=== PATIENT | male | born 1955 | race Caucasian/White ===

== ENCOUNTER → 2017-10-24 | Outpatient (CLI) | payer BC ==
[~2017-10-24] MED LIST: APIX5TAB PO; ASPI325T17 PO; LATA2.5D3 EACHEYE; LISI-170 PO; LORA-702 PO; LOSA50TA6 PO; MELO15TA24 PO; METO25TA35 PO; OMEP-110 PO; REGADENOSON 0.4 MG/5 ML SYRINGE ONE; TADA20TA PO; TEST60GE2 TP; TRAM50TA2 PO; claritin
== END | disposition home or self-care (01) ==
LOC: CVU 10:49 → EDSTATUS 11:00
PROVIDERS: ATTEND Internal Medicine Cardiovascular Disease
DX: I10 Essential (primary) hypertension (principal); I48.0 Paroxysmal atrial fibrillation
CPT/HCPCS: 78452; 93017; A9502; C8929; J2785

== ENCOUNTER 2019-01-14 07:02 | Inpatient (IN) | payer BC, OTHER ==
[~2019-01-14] VITALS: Ht 180.3 cm; Wt 132.9 kg
[~2019-01-14 07:02] MED LIST changes: +LOSA50TA14 PO; -LOSA50TA6 PO; -REGADENOSON 0.4 MG/5 ML SYRINGE ONE
--- NOTE | 2019-01-14 07:52 | NUR ---
PT AMBULATORY TO ROOM 17 W/ C/O LLQ ABD PAIN STARTED YESTERDAY NOC. PT STATES HE WAS RECENTLY ON ANTX FINISHED COURSE 2 DAYS AGO AND HAS HAD LOOSE STOOL NOW IMPROVED. PT STATES ONLY ABD HX WAS APPENDECTOMY. PT ALSO C/O NAUSEA NO EMESIS. PT RESTING ON GURNEY. NADN. MONITORS APPLIED. VSS. FAMILY AT BEDSIDE. WARM BLANKET PROVIDED.
[2019-01-14] MEDS ORDERED: SODIUM CHLORIDE FLUSH 10ML SYR IVF ONE (08:00)
[2019-01-14] MEDS ORDERED: ONDANSETRON 2MG/ML, 2ML IVPush ONE (08:00)
[2019-01-14] MEDS ORDERED: MORPHINE SULFATE 4 MG/ML, 1ML ONE ×3 (08:16→13:41)
[2019-01-14] MEDS ORDERED: ONDANSETRON 2MG/ML, 2ML ONE ×2 (08:16→13:04)
[2019-01-14] MEDS: MORPHINE SULFATE 4 MG/ML, 1ML IVPush PRN ×2 (08:19→09:35)
[2019-01-14 08:21] LABS: BASOPHILS # (AUTO) 0.02 x10^3/uL (0-0.1); BASOPHILS % (AUTO) 0 % (0-1); EOSINOPHILS # (AUTO) 0.23 x10^3/uL (0-0.4); EOSINOPHILS % (AUTO) 2 % (1-7); LYMPHOCYTES % (AUTO) 11 % (22-44); MD NO; MEAN CORPUSCULAR HEMOGLOBIN 31.2 pg (27.5-34.5); MEAN CORPUSCULAR HGB CONC 33.7 g/dL (33.2-36.2); MEAN CORPUSCULAR VOLUME 92.6 fL (81-97); MEAN PLATELET VOLUME 9.1 fL (7.4-10.4); MONOCYTES # (AUTO) 1.31 x10^3/uL (0.2-0.8); MONOCYTES % (AUTO) 9 % (2-9); NEUTROPHILS # (AUTO) 11.67 x10^3/uL (1.8-6.8); NEUTROPHILS % (AUTO) 78 % (42-75); PLATELET COUNT 175 x10^3/uL (130-400); RED BLOOD COUNT 5.42 x10^6/uL (4.38-5.82); RED CELL DISTRIBUTION WIDTH 14.6 % (9.4-14.8)
--- NOTE | 2019-01-14 08:25 | NUR ---
RN JUN IS HELPING THE PRIMARY CARE RN. PT. HAS C/O PAIN. PT. WAS MEDICATED FOR PAIN ORDERED. PT. VERBALIZED RELIEF FROM PAIN MEDICATION. PT. REMAINS MONITORED. SIDERAILS UP X 2 WITH THE CALL LIGHT IN PLACE. HOB IS ELEVATED ABOVE 30 DEGREES.
[2019-01-14 08:26] LABS: MICROSCOPIC NOT IND
[2019-01-14 08:31] LABS: CULTURE INDICATED? NO
[2019-01-14 08:33] LABS: ALANINE AMINOTRANSFERASE 35 U/L (12-78); ALBUMIN 3.4 g/dL (3.4-5.0); ANION GAP 7 mmol/L (5-15); CALCIUM 8.8 mg/dL (8.5-10.1); CHLORIDE 111 mmol/L (98-107); CREATININE 1.17 mg/dL (0.7-1.3)
[2019-01-14 08:35] LABS: ALKALINE PHOSPHATASE 78 U/L (45-117); BILIRUBIN,TOTAL 0.7 mg/dL (0.2-1.0); TOTAL PROTEIN 7.4 g/dL (6.4-8.2)
[2019-01-14] MEDS ORDERED: OMNIPAQUE 350 MG/ML, 150 ML BOTTLE ONE (08:59)
--- NOTE | 2019-01-14 09:35 | NUR ---
[facility]IC[facility] PER JAN.
[2019-01-14] MEDS ORDERED: METRONIDAZOLE PMX 500MG/100ML 100 ML IV ONE (10:30)
[2019-01-14] MEDS ORDERED: CEFTRIAXONE PMX 1GM/50ML 50 ML IV ONE (10:30)
--- NOTE | 2019-01-14 10:38 | NUR ---
PT RESTING ON GURNEY. NADN. CARSON.
--- NOTE | 2019-01-14 11:23 | NUR ---
PT RESTING ON GURNEY. NADN. CARSON.
[2019-01-14] MEDS ORDERED: LABETALOL 5MG/ML, 20ML IVPush PRN (11:30)
[2019-01-14] MEDS ORDERED: ACETAMINOPHEN 325 MG TABLET PO PRN (11:30)
[2019-01-14] MEDS ORDERED: hydrALAzine 20 MG/ML, 1ML IVPush PRN (11:30)
--- NOTE | 2019-01-14 12:09 | NUR ---
Supa cole in ED - 01/14/19 at 1210 by BONNIE PT DESATURATED WHILE SLEEPING. PT PLACED ON 2L NC AT THIS TIME.
[2019-01-14] MEDS ORDERED: METRONIDAZOLE PMX 500MG/100ML 100 ML ONE (12:28)
--- NOTE | 2019-01-14 12:56 | NUR ---
PT RESTING ON GURNEY. NADN. CARSON.
[2019-01-14] MEDS: METRONIDAZOLE PMX 500MG/100ML 100 ML IV SCH ×2 (12:58→20:04)
[2019-01-14] MEDS: CEFTRIAXONE PMX 2GM/50ML 50 ML IV SCH (12:59)
[2019-01-14] MEDS ORDERED: CEFTRIAXONE PMX 1GM/50ML 50 ML ONE (13:01)
[2019-01-14] MEDS: ONDANSETRON 2MG/ML, 2ML IVPush PRN ×2 (13:06→20:04)
--- NOTE | 2019-01-14 13:30 | NUR ---
PT RESTING ON GURNEY. MALDONADO
[2019-01-14] MEDS: morphine SULFATE 10 MG/ML, 1ML IVPush PRN ×4 (13:50→23:56)
[2019-01-14] MEDS: SODIUM CHLORIDE 0.9% 1,000 ML IV SCH ×2 (13:51→23:55)
--- NOTE | 2019-01-14 14:12 | NUR ---
PT RESTING ON GURNEY. NADN. CARSON.
--- NOTE | 2019-01-14 14:53 | NUR ---
REPORT GIVEN TO MARVA, RECEIVING RN. ALL QUESTIONS ANSWERED. AWAITING PT TRANSPORT.
[2019-01-14 17:24] VITALS: BP 106/64
[2019-01-14 20:27] VITALS: BP 109/58
[2019-01-15 01:58] VITALS: BP 116/76
[2019-01-15] MEDS: ONDANSETRON 2MG/ML, 2ML IVPush PRN ×4 (04:19→22:28)
[2019-01-15] MEDS: METRONIDAZOLE PMX 500MG/100ML 100 ML IV SCH ×3 (04:19→19:49)
[2019-01-15] MEDS: morphine SULFATE 10 MG/ML, 1ML IVPush PRN ×2 (04:19→07:52)
[2019-01-15 05:10] LABS: BASOPHILS # (AUTO) 0.03 x10^3/uL (0-0.1); BASOPHILS % (AUTO) 0 % (0-1); EOSINOPHILS # (AUTO) 0.13 x10^3/uL (0-0.4); EOSINOPHILS % (AUTO) 1 % (1-7); LYMPHOCYTES # (AUTO) 1.79 x10^3/uL (1-3.4); LYMPHOCYTES % (AUTO) 14 % (22-44); MD NO; MEAN CORPUSCULAR HEMOGLOBIN 31.7 pg (27.5-34.5); MEAN CORPUSCULAR VOLUME 93.3 fL (81-97); MEAN PLATELET VOLUME 9.1 fL (7.4-10.4); MONOCYTES # (AUTO) 1.44 x10^3/uL (0.2-0.8); MONOCYTES % (AUTO) 11 % (2-9); NEUTROPHILS # (AUTO) 9.81 x10^3/uL (1.8-6.8); NEUTROPHILS % (AUTO) 74 % (42-75); PLATELET COUNT 143 x10^3/uL (130-400); RED BLOOD COUNT 5.13 x10^6/uL (4.38-5.82); RED CELL DISTRIBUTION WIDTH 14.8 % (9.4-14.8)
[2019-01-15 05:18] LABS: ANION GAP 7 mmol/L (5-15); CALCIUM 8.6 mg/dL (8.5-10.1); CHLORIDE 110 mmol/L (98-107)
[2019-01-15 05:20] LABS: CREATININE 1.14 mg/dL (0.7-1.3)
[2019-01-15 06:44] VITALS: BP 109/72
[2019-01-15] MEDS ORDERED: SENNOSIDES 8.6 MG TABLET PO PRN (09:00)
[2019-01-15] MEDS: CEFTRIAXONE PMX 2GM/50ML 50 ML IV SCH (10:57)
[2019-01-15] MEDS: OXYcodone IR 5MG TABLET PO PRN ×3 (10:57→22:28)
[2019-01-15] MEDS ORDERED: morphine SULFATE 10 MG/ML, 1ML IVPush PRN (11:00)
[2019-01-15 16:25] VITALS: BP 103/60
[2019-01-15] MEDS: SODIUM CHLORIDE 0.9% 1,000 ML IV SCH (16:30)
[2019-01-15 19:04] VITALS: BP 106/70
[2019-01-15] MEDS ORDERED: CALCIUM CARBONATE 500 MG TAB.CHEW PO PRN (19:30)
[2019-01-16 04:11] VITALS: BP 110/71
[2019-01-16] MEDS: METRONIDAZOLE PMX 500MG/100ML 100 ML IV SCH (04:24)
[2019-01-16] MEDS: ONDANSETRON 2MG/ML, 2ML IVPush PRN ×4 (04:25→23:35)
[2019-01-16] MEDS: OXYcodone IR 5MG TABLET PO PRN ×4 (04:25→23:35)
[2019-01-16 07:25] VITALS: BP 101/56
[2019-01-16] MEDS: SODIUM CHLORIDE 0.9% 1,000 ML IV SCH (07:43)
[2019-01-16 09:37] LABS: BASOPHILS # (AUTO) 0.03 x10^3/uL (0-0.1); BASOPHILS % (AUTO) 0 % (0-1); EOSINOPHILS # (AUTO) 0.15 x10^3/uL (0-0.4); EOSINOPHILS % (AUTO) 1 % (1-7); LYMPHOCYTES % (AUTO) 12 % (22-44); MD NO; MEAN CORPUSCULAR HEMOGLOBIN 31.5 pg (27.5-34.5); MEAN CORPUSCULAR HGB CONC 34.2 g/dL (33.2-36.2); MEAN CORPUSCULAR VOLUME 92.1 fL (81-97); MEAN PLATELET VOLUME 8.6 fL (7.4-10.4); MONOCYTES # (AUTO) 0.91 x10^3/uL (0.2-0.8); MONOCYTES % (AUTO) 9 % (2-9); NEUTROPHILS # (AUTO) 8.36 x10^3/uL (1.8-6.8); NEUTROPHILS % (AUTO) 78 % (42-75); PLATELET COUNT 146 x10^3/uL (130-400); RED BLOOD COUNT 4.71 x10^6/uL (4.38-5.82); RED CELL DISTRIBUTION WIDTH 14.3 % (9.4-14.8)
[2019-01-16 09:49] LABS: ALANINE AMINOTRANSFERASE 21 U/L (12-78); ALBUMIN 2.8 g/dL (3.4-5.0); ANION GAP 5 mmol/L (5-15); CALCIUM 8.2 mg/dL (8.5-10.1); CHLORIDE 111 mmol/L (98-107); CREATININE 1.02 mg/dL (0.7-1.3)
[2019-01-16 09:51] LABS: ALKALINE PHOSPHATASE 53 U/L (45-117); BILIRUBIN,TOTAL 0.6 mg/dL (0.2-1.0); TOTAL PROTEIN 6.6 g/dL (6.4-8.2)
[2019-01-16] MEDS: SODIUM CHLORIDE 0.45% 1,000 ML IV SCH ×2 (10:55→19:36)
[2019-01-16] MEDS: MEROPENEM 1 GM in SODIUM CHLORIDE 0.9% 100 ML IV SCH ×2 (11:34→19:28)
[2019-01-16 14:00] VITALS: BP 133/82
[2019-01-16 14:57] VITALS: BP 105/73
[2019-01-16] MEDS ORDERED: OMNIPAQUE 350 MG/ML, 100ML BOTTLE ONE (15:29)
[2019-01-16 19:24] VITALS: BP 99/64
[2019-01-17 00:54] VITALS: BP 109/72
[2019-01-17] MEDS: MEROPENEM 1 GM in SODIUM CHLORIDE 0.9% 100 ML IV SCH ×3 (03:26→19:37)
[2019-01-17] MEDS: SODIUM CHLORIDE 0.45% 1,000 ML IV SCH ×3 (04:35→21:32)
[2019-01-17] MEDS: OXYcodone IR 5MG TABLET PO PRN (06:12)
[2019-01-17] MEDS: ONDANSETRON 2MG/ML, 2ML IVPush PRN (06:12)
[2019-01-17 07:29] LABS: BASOPHILS # (AUTO) 0.01 x10^3/uL (0-0.1); BASOPHILS % (AUTO) 0 % (0-1); EOSINOPHILS # (AUTO) 0.22 x10^3/uL (0-0.4); EOSINOPHILS % (AUTO) 2 % (1-7); LYMPHOCYTES # (AUTO) 1.19 x10^3/uL (1-3.4); LYMPHOCYTES % (AUTO) 10 % (22-44); MD NO; MEAN CORPUSCULAR HEMOGLOBIN 31.4 pg (27.5-34.5); MEAN CORPUSCULAR HGB CONC 33.9 g/dL (33.2-36.2); MEAN CORPUSCULAR VOLUME 92.7 fL (81-97); MEAN PLATELET VOLUME 8.8 fL (7.4-10.4); MONOCYTES # (AUTO) 0.98 x10^3/uL (0.2-0.8); MONOCYTES % (AUTO) 8 % (2-9); NEUTROPHILS # (AUTO) 9.41 x10^3/uL (1.8-6.8); NEUTROPHILS % (AUTO) 80 % (42-75); PLATELET COUNT 160 x10^3/uL (130-400); RED BLOOD COUNT 4.78 x10^6/uL (4.38-5.82); RED CELL DISTRIBUTION WIDTH 14.1 % (9.4-14.8)
[2019-01-17] MEDS ORDERED: KETOROLAC 30 MG/1 ML IM SCH (07:30)
[2019-01-17 07:33] LABS: ALANINE AMINOTRANSFERASE 19 U/L (12-78); ALBUMIN 2.9 g/dL (3.4-5.0); ANION GAP 6 mmol/L (5-15); CALCIUM 8.1 mg/dL (8.5-10.1); CHLORIDE 109 mmol/L (98-107); CREATININE 1.07 mg/dL (0.7-1.3)
[2019-01-17 07:35] LABS: ALKALINE PHOSPHATASE 56 U/L (45-117); BILIRUBIN,TOTAL 0.6 mg/dL (0.2-1.0); TOTAL PROTEIN 6.6 g/dL (6.4-8.2)
[2019-01-17 08:00] VITALS: BP 114/74
[2019-01-17] MEDS: KETOROLAC 30 MG/1 ML IVPush SCH ×3 (08:22→20:26)
[2019-01-17] MEDS ORDERED: KETOROLAC 30 MG/1 ML IVPush SCH (13:30)
[2019-01-17 14:00] VITALS: BP 117/73
[2019-01-17 18:59] VITALS: BP 97/66
[2019-01-18 00:09] VITALS: BP 112/68
[2019-01-18] MEDS: KETOROLAC 30 MG/1 ML IVPush SCH ×2 (03:03→09:53)
[2019-01-18] MEDS: MEROPENEM 1 GM in SODIUM CHLORIDE 0.9% 100 ML IV SCH ×2 (04:06→11:55)
[2019-01-18 05:59] LABS: BASOPHILS # (AUTO) 0.04 x10^3/uL (0-0.1); BASOPHILS % (AUTO) 1 % (0-1); EOSINOPHILS % (AUTO) 3 % (1-7); LYMPHOCYTES # (AUTO) 1.46 x10^3/uL (1-3.4); LYMPHOCYTES % (AUTO) 19 % (22-44); MD NO; MEAN CORPUSCULAR HGB CONC 34.9 g/dL (33.2-36.2); MEAN CORPUSCULAR VOLUME 91.7 fL (81-97); MEAN PLATELET VOLUME 8.4 fL (7.4-10.4); MONOCYTES # (AUTO) 0.68 x10^3/uL (0.2-0.8); MONOCYTES % (AUTO) 9 % (2-9); NEUTROPHILS % (AUTO) 69 % (42-75); PLATELET COUNT 147 x10^3/uL (130-400); RED BLOOD COUNT 4.54 x10^6/uL (4.38-5.82); RED CELL DISTRIBUTION WIDTH 13.8 % (9.4-14.8)
[2019-01-18 06:05] LABS: CHLORIDE 113 mmol/L (98-107)
[2019-01-18 06:13] LABS: ALANINE AMINOTRANSFERASE 18 U/L (12-78); ALBUMIN 2.6 g/dL (3.4-5.0); ALKALINE PHOSPHATASE 52 U/L (45-117); ANION GAP 5 mmol/L (5-15); BILIRUBIN,TOTAL 0.4 mg/dL (0.2-1.0); CALCIUM 7.9 mg/dL (8.5-10.1); CREATININE 1.05 mg/dL (0.7-1.3); TOTAL PROTEIN 6.1 g/dL (6.4-8.2)
[2019-01-18] MEDS: SODIUM CHLORIDE 0.45% 1,000 ML IV SCH (07:00)
[2019-01-18 08:00] VITALS: BP 118/72
[2019-01-18 13:21] VITALS: BP 119/75
[2019-01-18] MEDS ORDERED: METR500T PO (13:43)
[2019-01-18] MEDS ORDERED: CIPR500T87 PO (13:43)
== END 2019-01-18 15:07 | disposition home or self-care (01) | DRG 392 ==
LOC: ED 07:56 → EDIP 10:25 → 3NE 14:46
PROVIDERS: ADMIT Internal Medicine; ATTEND Internal Medicine
DX: K57.32 Diverticulitis of large intestine without perforation or abscess without bleeding (principal); H40.9 Unspecified glaucoma; I10 Essential (primary) hypertension; K21.9 Gastro-esophageal reflux disease without esophagitis; K76.0 Fatty (change of) liver, not elsewhere classified; K80.20 Calculus of gallbladder without cholecystitis without obstruction; Z90.49 Acquired absence of other specified parts of digestive tract
CPT/HCPCS: 36415; 74177; 76700; 80048; 80053; 81003; 83605; 83690; 83735; 84100; 85025; 87040; 96374; 96375; 96376; G0378; J0696; J1885; J2185; J2405; Q9967; J2270; J7030

== ENCOUNTER 2019-05-23 10:12 | Emergency (ER) | payer OTHER ==
[~2019-05-23] VITALS: Ht 177.8 cm; Wt 131.8 kg
[~2019-05-23 10:12] MED LIST changes: +CIPR500T87 PO; +METR500T PO
[2019-05-23 10:14] VITALS: BP 161/75
--- NOTE | 2019-05-23 10:20 | NUR ---
NICOLÁS DAVIS AT BEDSIDE TO ASSESS PT, PT IN NAD, NO NEEDS AT THIS TIME
[2019-05-23] MEDS ORDERED: LIDOCAINE-MPF 1%, 5ML ONE (10:27)
[2019-05-23] MEDS ORDERED: LIDOCAINE 1%, 10ML INFIL ONE (10:30)
[2019-05-23] MEDS ORDERED: NEOSPORIN OINT. PKT 1 PACKET ONE (11:01)
== END 2019-05-23 11:24 | disposition home or self-care (01) ==
LOC: ED 10:23
DX: S60.132A Contusion of left middle finger with damage to nail, initial encounter (principal); I10 Essential (primary) hypertension; Z87.891 Personal history of nicotine dependence; W23.0XXA Caught, crushed, jammed, or pinched between moving objects, initial encounter; Y93.89 Activity, other specified; Y92.009 Unspecified place in unspecified non-institutional (private) residence as the place of occurrence of the external cause; Y99.8 Other external cause status
CPT/HCPCS: 11730; 99283

== ENCOUNTER 2020-04-01 19:29 | Emergency (ER) | payer BC, OTHER ==
[~2020-04-01] VITALS: Ht 180.3 cm; Wt 126.7 kg
--- NOTE | 2020-04-01 19:46 | NUR ---
PT BACK TO ROOM WITH A SMOOTH AND STEADY GAIT, NAD, RESP WNL, P/W/D, AT BS, CALL LIGHT ON LAP, WCTM. VAHE WIGGINS AT FOR EVAL AND POC.
[2020-04-01] MEDS ORDERED: ONDANSETRON 2MG/ML, 2ML IVPush ONE (20:00)
[2020-04-01] MEDS ORDERED: PLEASE ENTER ALLERGIES MC SCH (20:00)
[2020-04-01] MEDS ORDERED: ONDANSETRON 2MG/ML, 2ML ONE (20:03)
[2020-04-01] MEDS ORDERED: MORPHINE SULFATE 4 MG/ML, 1ML ONE ×3 (20:04→21:46)
[2020-04-01] MEDS: MORPHINE SULFATE 4 MG/ML, 1ML IVPush PRN ×2 (20:14→20:36)
[2020-04-01 20:33] LABS: BASOPHILS # (AUTO) 0.03 x10^3/uL (0-0.1); BASOPHILS % (AUTO) 0 % (0-1); EOSINOPHILS # (AUTO) 0.11 x10^3/uL (0-0.4); EOSINOPHILS % (AUTO) 1 % (1-7); LYMPHOCYTES # (AUTO) 0.85 x10^3/uL (1-3.4); LYMPHOCYTES % (AUTO) 8 % (22-44); MD NO; MEAN CORPUSCULAR HEMOGLOBIN 30.5 pg (27.5-34.5); MEAN CORPUSCULAR HGB CONC 33.4 g/dL (33.2-36.2); MEAN PLATELET VOLUME 8.9 fL (7.4-10.4); MONOCYTES # (AUTO) 0.69 x10^3/uL (0.2-0.8); MONOCYTES % (AUTO) 7 % (2-9); NEUTROPHILS % (AUTO) 84 % (42-75); PLATELET COUNT 168 x10^3/uL (130-400); RED BLOOD COUNT 5.35 x10^6/uL (4.38-5.82); RED CELL DISTRIBUTION WIDTH 14.6 % (9.4-14.8)
[2020-04-01 20:35] LABS: MICROSCOPIC AUTO
[2020-04-01 20:43] LABS: ALANINE AMINOTRANSFERASE 17 U/L (12-78); ALBUMIN 3.7 g/dL (3.4-5.0); ANION GAP 5 mmol/L (5-15); CHLORIDE 111 mmol/L (98-107); CREATININE 1.84 mg/dL (0.7-1.3)
[2020-04-01 20:45] LABS: ALKALINE PHOSPHATASE 69 U/L (45-117); BILIRUBIN,TOTAL 0.7 mg/dL (0.2-1.0); TOTAL PROTEIN 7.3 g/dL (6.4-8.2)
--- NOTE | 2020-04-01 21:22 | NUR ---
PT RESTING ON GURNEY WITH MONITORING IN PLACE, REPORTS DECREASED PAIN TO 3/10. PT UPDATED ON POC, DENIES FURTHER NEEDS AT THIS TIME, CALL LIGHT WITHIN REACH, ALL SAFETY MEASURES IN PLACE. FAMILY AT BS FOR SUPPORT.
[2020-04-01] MEDS ORDERED: MORPHINE SULFATE 4 MG/ML, 1ML IVPush ONE (22:30)
[2020-04-01 22:31] VITALS: BP 103/61
== END 2020-04-01 22:35 | disposition home or self-care (01) ==
LOC: ED 20:31
DX: N20.1 Calculus of ureter (principal); R31.9 Hematuria, unspecified; I10 Essential (primary) hypertension; Z90.89 Acquired absence of other organs
CPT/HCPCS: 36415; 74176; 80053; 81001; 83690; 85025; 96374; 96375; 96376; 99284; J2270; J2405